=== PATIENT | female | born 1950 | race Asian ===

== ENCOUNTER 2016-10-30 16:19 | Inpatient (IN) | payer MEDICARE, MEDICAID ==
[~2016-10-30] VITALS: Ht 152.4 cm; Wt 48.6 kg
[2016-10-30 16:24] VITALS: BP 113/60; PULSE 102; RESP 16; O2SAT 99
[2016-10-30 16:52] LABS: BASOPHILS % (AUTO) 0.1 % (0-3); EOSINOPHILS % (AUTO) 0.1 % (0-5); Mean Corpuscular Hemoglobin 31.3 pg (27.0-35.0); Mean Corpuscular Volume 88.9 fL (81-100); NEUTROPHILS % (AUTO) 84.7 % (40-74); Platelet Count 217 bil/L (150-400)
[2016-10-30 17:12] LABS: Magnesium 2.1 mg/dL (1.6-2.6)
[2016-10-30] MEDS ORDERED: Ondansetron 2 mg/mL 2 mL Inj IVPUSH ONE (17:25)
[2016-10-30] MEDS ORDERED: 0.9% Sodium Chloride 1,000 ML IV ONE (17:25)
[2016-10-30 17:29] LABS: APPEARANCE,URINE HAZY (CLEAR,HAZY); COLOR,URINE YELLOW (YELLOW)
[2016-10-30 17:30] LABS: OCCULT BLOOD,URINE SMALL (NEGATIVE); UROBILINOGEN,URINE NORMAL (NORMAL)
--- NOTE | 2016-10-30 17:30 | ED.REPORT ---
HPI-Abd Pain F 40 and Over Date of Service Oct 30, 2016 ED Provider: Jodi Delgadillo MD Pt is a 66 year old Macedonian speaking female with a hx of DM presenting to the ED complaining of RUQ pain and nausea onset this morning. Denies vomiting, diarrhea , fever, chills, SOB or wheezing. Yesterday, she had mid epigastric pain onset after eating, but it has now migrated to the RUQ. Denies any hx of surgery. Nursing Notes Stated Complaint: ABDOMINAL PAIN Chief Complaint: Female Abdominal Pain Nursing Notes Reviewed: Yes Allergies: Coded Allergies: No Known Allergies (Unverified , 10/30/16) Scheduled ([Anti-Hypertensive]) 5 MG PO QAM Atorvastatin (Lipitor) 40 Mg Tablet Unknown Dose PO HS Glipizide ER (Glipizide ER) 2.5 Mg Tab.er.24 2.5 MG PO QAM Metformin (Metformin) 500 Mg Tablet 500 MG PO BIDWM General Time Seen by MD: 17:20 Chief Complaint Abdominal pain Hx Obtained From: Patient Arrived By: Walk-in Sudden in Onset?: Yes Onset Occurred: Yesterday Context of Onset: Eating Symptom Duration: Since onset Location: : Epigastric: RUQ Quality: Painful Severity: Current: Moderate Severity: Maximum: Severe Recent Healthcare: No recent doctor visit, No recent hospitalization Similar Sx Previous: No Past Medical History Past Medical History Diabetes mellitus Past Surgical History denies Smoking History Unknown if Ever Smoker Ambulatory Status Independent Review of Systems Constitutional: Denies: Chills, Fever Respiratory: Denies: Shortness of breath, Wheezing GI: Reports: Abdominal pain, Nausea, Denies: Diarrhea, Vomiting Complete sys rev & neg: except as marked. Physical Exam Vital Signs Vital Signs (First) Date Time Temp Pulse Resp B/P Pulse Ox O2 Delivery O2 Flow Rate FiO2 10/30/16 16:24 36.8 102 16 113/60 99 Room Air Initial VS: Reviewed Head / Eyes: Atraumatic, Normocephalic, PERRL ENT: Mucous membranes moist, Conjunctiva normal, No scleral icterus Extremities: Vascular intact, Neuro intact, No swelling, No tenderness Skin: Warm, Dry, No cyanosis Neurologic: Alert, Oriented, Nonfocal Psychiatric: Mood/affect normal, Behavior normal, Normal thought content General/Constitutional: Awake, Alert Appears uncomfortable Respiratory / Chest: Breath sounds NL, Breath sounds = bilat, No respiratory distress, No rales, No rhonchi, No wheezing, No stridor Cardiovascular: Heart rate NL, Regular rhythm, Heart sounds NL, Peripheral circulation NL Abdomen: Atraumatic Tenderness/Guarding/Rebound: Positive: Guarding involuntary, Tender RUQ... ( Moderate) Back: Atraumatic, Inspection NL Interpretation & Diagnostics US ABDOMEN: IMPRESSION: 1. Cholelithiasis with positive sonographic Lafleur sign suspicious for early acute cholecystitis. 2. Mild common bile duct dilatation. Please correlate with laboratory data to exclude biliary obstruction. Dictated by: Flavia Webb MD, PhD on 10/30/2016 at 18:51 Lab Results Interpretation Result Diagram: 10/30/16 1642 10/30/16 1642 Test 10/30/16 16:42 10/30/16 17:03 10/30/16 17:31 White Blood Count 16.4th/mm3 (3.8-10.1) Red Blood Count 4.16mil/mm3 (3.90-5.20) Hemoglobin 13.0g/dL (12.0-15.6) Hematocrit 37.0% (35.0-46.0) Mean Corpuscular Volume 88.9fL (81-100) Mean Corpuscular Hemoglobin 31.3pg (27.0-35.0) Mean Corpuscular Hemoglobin Concent 35.1% (32.0-37.0) Red Cell Distribution Width 11.4% (12.3-15.4) Platelet Count 217bil/L (150-400) Neutrophils (%) (Auto) 84.7% (40-74) Lymphocytes (%) (Auto) 8.9% (14-46) Monocytes (%) (Auto) 6.0% (4-12) Eosinophils (%) (Auto) 0.1% (0-5) Basophils (%) (Auto) 0.1% (0-3) Sodium Level 131mEq/L (134-144) Potassium Level 4.5mEq/L (3.5-5.2) Chloride Level 93mEq/L (97-108) Carbon Dioxide Level 23mmol/L (18-29) Blood Urea Nitrogen 13mg/dL (8-27) Creatinine 0.52mg/dL (0.57-1.00) Estimat Glomerular Filtration Rate 170mL/min (>59) Glucose Level 181mg/dL (60-99) Calcium Level 9.4mg/dL (8.5-10.1) Magnesium Level 2.1mg/dL (1.6-2.6) Total Bilirubin 0.8mg/dL (0.0-1.2) Aspartate Amino Transf (AST/SGOT) 18U/L (0-50) Alanine Aminotransferase (ALT/SGPT) 27U/L (0-32) Alkaline Phosphatase 75U/L (25-165) Total Protein 8.3g/dL (6.4-8.4) Albumin 4.5g/dL (3.4-5.0) Lipase 27U/L (13-60) Urine Color Yellow (YELLOW) Urine Appearance Hazy (CLEAR,HAZY) Urine pH 6.0 (5.0-8.0) Urine Specific Jermyn 1.020 (1.003-1.035) Urine Protein Tracemg/dL (NEG,TRACE) Urine Glucose (UA) Negativemg/dL (NEGATIVE) Urine Ketones Negativemg/dL (NEGATIVE) Urine Occult Blood Small (NEGATIVE) Urine Nitrite Negative (NEGATIVE) Urine Bilirubin Negative (NEGATIVE) Urine Urobilinogen Normalmg/dL (NORMAL) Urine Leukocyte Esterase Trace (NEGATIVE) Urine RBC 0-2/hpf (0-2) Urine WBC 0-5/hpf (0-5) Urine Epithelial Cells Few/hpf (NONE-MOD) Urine Crystals None seen (NONE SEEN) Urine Bacteria Few/hpf (NONE-FEW) Urine Hyaline Casts None/lpf (NONE) Urine Granular Casts None seen (NONE SEEN) Urine Waxy Casts None seen (NONE SEEN) Urine Red Blood Cell Casts None seen (NONE SEEN) Urine White Blood Cell Casts None seen (NONE SEEN) Urine Mucus Present (None Seen) Urine Trichomonas None seen (NONE SEEN) Urine Yeast None (NONE SEEN) Urinalysis Comment None Urine Culture Reflexed Indicated Hold Cotter Top Tube Received (Received) Re-Eval/Medical Decision Med Decision/Clinical Course 66-year-old female presents to the emergency department with right upper quadrant pain, develops fever while in the emergency department, elevated white blood cell count, right upper quadrant ultrasound with signs of cholecystitis. Patient did have a dilated common bile duct but no laboratory abnormalities concerning for choledocholithiasis. She was seen by Dr. Marroquin from general surgery in the emergency department and admitted to the hospital. She was given IV fluids as well as a dose of IV Zosyn. Re-Evaluation/Progress : Time of Eval: 19:15 Patient Status: Condition improved Re-Evaluation/Progress Note: Updated on ultrasound results and discussed plan for admission. Consultation : Referral / Consult Name: Perry Marroquin MD Consulted With: Surgeon Call Returned at: 19:12 Rubber Tubing Splicer: Will see patient, Agrees with plan, Accepts admit Counseled Regarding: Diagnosis, Lab results, Need for admission Discharge & Departure Primary Impression: Gallstones Disposition: ADMITTED TO HOSPITAL Discharge Condition All VS Reviewed: Yes Condition: Improved Referrals: OTHER,PHYSICIAN (PCP) Scribe Attestation Portions of this note were transcribed by Lucy Thomas. I, Dr. Delgadillo personally performed the history, physical exam and medical decision-making; I reviewed and confirmed the accuracy of the information in the transcribed note. Signed by: Jersey Gonzalez, 10/30/2016. Jodi Delgadillo MD Oct 30, 2016 17:30 LUCY THOMAS Oct 30, 2016 17:36
--- NOTE | 2016-10-30 18:57 | DRSVH ---
PROCEDURE: US ABDOMEN ([id number]) INDICATIONS: RUQ pain, cholecystitis TECHNIQUE: Real-time scanning was performed of the abdominal and retroperitoneal organs, with image documentatio n. COMPARISON: None. FINDINGS: Liver: Liver is normal in size and homogeneous in echotexture. Gallbladder: Large gallstone is noted. Gallbladder wall is not thickened. Positive sonographic Mur phy sign noted. Biliary ducts: Intrahepatic bile ducts are non-dilated. Extrahepatic bile duct caliber measures 9 m m. Normal is 6-7 mm or less in diameter, or 10 mm or less post-cholecystectomy. Pancreas: Visualized portions of the pancreas are sonographically normal. Spleen: Spleen is normal in size and homogeneous in echotexture. Kidneys: Kidneys are normal in size and echotexture. Right kidney measures 12.0 cm long; left kidne y measures 10.1 cm long. No hydronephrosis or nephrolithiasis. No solid masses. Aorta: Visualized aorta is normal in caliber at less than 3 cm. Iliacs: Proximal common iliac arteries are normal in caliber at less than 2.5 cm. IVC: Intrahepatic inferior vena cava is patent. Miscellaneous: No free abdominal fluid. IMPRESSION: 1. Cholelithiasis with positive sonographic Lafleur sign suspicious for early acute cholecystitis. 2. Mild common bile duct dilatation. Please correlate with laboratory data to exclude biliary obstr uction. Dictated by: Flavia Webb MD, PhD on 10/30/2016 at 18:51 Approved by: Flavia Webb MD, PhD on 10/30/2016 at 18:55
[2016-10-30] MEDS ORDERED: Piperacillin-Tazo 3.375 Gm Inj 3.375 GM in Dextrose 5% Minibag Plus 50 ML IV ONE (19:10)
[2016-10-30 19:28] VITALS: BP 108/58; PULSE 94; RESP 18; O2SAT 97
[2016-10-30] MEDS ORDERED: Acetaminophen IV 1,000 MG in IV Premix 1 EACH IV ONE (19:50)
[2016-10-30] MEDS ORDERED: Insulin Human REGular Inj 100 UNIT in 0.9% Sodium Chloride-Pha MIX 100 ML IV SCH (20:09)
[2016-10-30] MEDS ORDERED: D5 0.9% NaCl + KCl 20 mEq/L 1,000 ML IV SCH (20:10)
[2016-10-30] MEDS ORDERED: HYDROmorphone 0.5 mg/0.5 mL iSecure Syringe IV PRN (20:10)
[2016-10-30] MEDS ORDERED: diphenhydrAMINE 25 mg Capsule PO PRN (20:10)
[2016-10-30] MEDS ORDERED: Acetaminophen IV 1,000 MG in IV Premix 1 EACH IV PRN (20:10)
[2016-10-30] MEDS ORDERED: Ondansetron 2 mg/mL 2 mL Inj IVPUSH PRN (20:10)
[2016-10-30 20:30] VITALS: BP 89/54; PULSE 85; RESP 16; O2SAT 97
--- NOTE | 2016-10-30 20:34 | NUR ---
Admission Admission assessment and screening completed. Machine Precision Engraver service utilized during interview.
[2016-10-30] MEDS ORDERED: Dextrose 10% 250 ML IV PRN (20:40)
[2016-10-30] MEDS ORDERED: Glucose 40% Oral Gel 15 Gm Tube PO SCH (20:45)
[2016-10-30] MEDS ORDERED: GLIP2.5T2 PO (21:18)
[2016-10-30] MEDS ORDERED: ANTI-HYPERTENSIVE PO (21:18)
[2016-10-30] MEDS ORDERED: LIP40 PO (21:18)
[2016-10-30] MEDS ORDERED: METF500T4 PO (21:18)
[2016-10-30] MEDS ORDERED: Piperacillin-Tazo 3.375 Gm Inj 3.375 GM in Dextrose 5% Minibag Plus 50 ML IV SCH (23:30)
[2016-10-31] VITALS (12 sets, daily range): BP systolic 92–120; BP diastolic 51–62; PULSE 65–99; RESP 16–22; O2SAT 94–100
--- NOTE | 2016-10-31 00:19 | HP ---
[address] [address] HISTORY AND PHYSICAL PATIENT: AIDEN BROOKS : 1950 MR#: [id number] ADMIT: 10/30/2016 JOB ID: [id number] CHIEF COMPLAINT/IDENTIFICATION: A 66-year-old female, with acute cholecystitis. HISTORY OF PRESENT ILLNESS: The patient began with midepigastric pain after eating yesterday, this morning, noted that it had moved over to the right upper quadrant and had associated nausea. No emesis, no history of jaundice, acholic stool, or tea-colored urine. This is her 1st episode of this type of abdominal pain. She has been diagnosed with acute cholecystitis in the emergency department. PAST MEDICAL HISTORY: Diabetes, hypertension. MEDICATIONS: She is unable to tell me exactly what she is taking, but she says she takes two diabetes medications, neither of them being insulin. ALLERGIES: None. SOCIAL HISTORY: The patient is seen with her . Her primary language is Bengali, though they both speak some Malawian. My entire interview and exam has been using the [employer] audio quality officer for Bengali. Negative tobacco. Negative daily alcohol. Other important social history is that the patient's son is getting in [place] next weekend, and they were going to get on a plane on . REVIEW OF SYSTEMS: Negative per Dr. Delgadillo. PHYSICAL EXAMINATION: Slender woman, appearing somewhat fatigued, in no acute distress. Sclerae are clear. She appears anicteric. Neck is supple. Lungs are clear. Heart sounds are regular. Breasts are not examined. She has mild right upper quadrant tenderness. LABORATORIES: Shows white count of 16.4, hematocrit of 37, platelets of 217. Normal liver function tests. Her glucose is 181. Sodium is a little low at 131. Chloride is 93. Lipase is 27. IMAGING: She has had an ultrasound that is consistent with acute cholecystitis, with at least one large gallstone. IMPRESSION/PLAN: Fairly mild acute cholecystitis. This is her 1st episode. I have recommended a laparoscopic cholecystectomy, but I have also offered them the option of antibiotic treatment with a goal of either avoiding surgery at all or of bridging through the trip to [place] and the wedding. My recommendation is to move ahead with laparoscopic cholecystectomy tomorrow morning, and that has been my recommendation including description of the procedure and discussion of the risks of bleeding, infection, and injury to other structures including the common duct. The patient and her would like to proceed, and signed the consent. I will admit her to my service, try to get her glucose under control with an insulin drip tonight, hydrate her up a bit to get her electrolytes normal, recheck her LFTs, but plan for a laparoscopic cholecystectomy with cholangiogram tomorrow morning.
--- NOTE | 2016-10-31 01:36 | NUR ---
TO ROOM 1008; 66 yr old female from e.r. via [facility] at approx. 2030 with c/o abd pain which started yesterday (10/29). Stated very little pain upon transfer to room. Denied nausea. Insulin gtt started. NPO for surgery in the a.m. and son was with pt; left for the evening. Pt able to communicate with the nursing staff. Primary language is Maltese.
--- NOTE | 2016-10-31 05:40 | NUR ---
PAIN; slept well during the night. Up to [facility] [place] this a.m. c/o 08/23 abd pain - dilaudid 0.5mg iv given slowly due to pt being small and systolic bp 90's. Insulin gtt cont.
[2016-10-31 05:56] LABS: BASOPHILS % (AUTO) 0.1 % (0-3); EOSINOPHILS % (AUTO) 0.3 % (0-5); MONOCYTES % (AUTO) 5.3 % (4-12); Mean Corpuscular Volume 90.8 fL (81-100); NEUTROPHILS % (AUTO) 85.2 % (40-74); Platelet Count 168 bil/L (150-400)
--- NOTE | 2016-10-31 07:26 | PCM.HPANE ---
Patient Data Date of Service: Oct 31, 2016 Surgeon Admitting Provider:Perry Marroquin MD Attending Provider:Perry Marroquin MD Primary Care Physician:Other,Physician Other Provider:Sonia Jacobs Anesthesia Reason for Visit Cholecystitis Ht/WT & BMI Height (Feet): 5 Height (Inches): 0.00 Weight (Kilograms): 48.100 Body Mass Index 20.82 Allergies Coded Allergies: No Known Allergies (Unverified , 10/30/16) Past Anesthesia History Anesthesia History: Denies:: Abnormal Airway, Anesthesia Reactions, Fam Anesthesia Reaction Diabetes History Hx Diabetes?: Yes Type of Diabetes: Type II Glycemic Control: Oral Medication Current Bedside Blood Glucose: 153 MRSA MRSA: No Medications Hypertension Medication: Yes Home Meds Incl Beta Ray: No Reported Medications [Anti-Hypertensive] No Conflict Check5 Mg PO QAM 10/30/16 Metformin 500 Mg [id number] Mg PO BIDWM Ref 0 10/30/16 Glipizide ER 2.5 Mg Tab.er.242.5 Mg PO QAM 10/30/16 Atorvastatin (Lipitor)40 Mg TabletUnknown Dose PO HS Ref 0 10/30/16 History History of ENT Problems?: No HEENT History: Denies:: Abnormal Airway Denture Type: None Teeth Condition: Within Normal Limits Other HEENT Pertinent History: loose lower front tooth Hx of Heart Problems?: Yes Cardiovascular History: Positive for:: Hypertension Denies:: Cardiac Surgery Chest Pain Congestive Heart Failure Edema Heart Murmur Irregular Heartbeat Pacemaker Thrombophlebitis Hx of Respiratory Problem?: No Respiratory History: Denies:: Asthma Cough Dyspnea Tuberculosis Hx Neurologic Problems?: No Hx of GI Problems?: No Hx of Problems?: No Female Hx: Denies:: Endometriosis Pelvic Inflammatory Problems with Breasts? Hx Musculoskeletal Problems?: No Hx of Psycho/Social Problems?: No Hx Surgeries?: No Hx Any Other Health Problems?: Yes Other History: Positive for:: Hospitalization Denies:: Cancer History Blood Transfusions: Positive for:: Accept Blood Products? Denies:: Blood Transfusions Hx Diabetes: YesBedside Blood Glucose: 153 Hx Alcohol Use: NoHx Substance Use: No Smoking Status: Unknown if Ever Smoker Stop/Bang Treated for Sleep Apnea?: No Do You Have a CPAP Machine?: No S-Snoring: Do You Snore Loudly: No T-Tired: feel tired, fatigued: No O-Obsered: Observed not breath: No P-Blood Pressure: treated: No B- Body Mass Index > 35 kg/m2: No A- Age over 50: Yes N- Neck Large Circumference: No G- Gender Male: No FINESSE Total Score: 0 FINESSE Risk Assessment: Low Risk, <3 Yes Risk Assessment Category Category 1A: Patient has history of documented sleep apnea, and HAS NOT received any narcotic, sedative or anesthesia administration during this stay. Category 1B: Patient has history of documented sleep apnea, and HAS received any narcotic , sedative or anesthesia administration during this stay Category 2: Patient has SUSPECTED Obstructive Sleep Apnea, and HAS received any narcotic , sedative or anesthesia administration during this stay. Category 3: Patient has SUSPECTED Obstructive Sleep Apnea and HAS NOT received narcotic, sedative or anesthesia administration during this stay. Category 4: Outpatient in Procedural Areas with known sleep apnea or who screen positive for High Risk via the STOP/BANG questionnaire. Exam Exam Vital Signs Vital Signs Date Time Temp Pulse Resp B/P Pulse Ox O2 Delivery O2 Flow Rate FiO2 10/31/16 05:38 37.1 81 18 92/62 97 Room Air 10/31/16 00:13 37.1 84 20 94/52 98 Room Air General Appearance: Alert, Oriented X3, Cooperative, No Acute Distress HEENT/AIRWAY: MP 2, Neck Movement (FROM, tmd 3 fb), Mouth Opening (small) Lungs: Clear to Auscultation, Normal Air Movement Heart: Exam Unremarkable, Regular Rate/Rhythm, No Murmurs/Rubs/Gallops Meds/Labs/Diagnostics Admission Meds Current Medications Sodium Chloride (Normal Saline) 1,000 ml @ 0 mls/hr Q0M ONCE IV Last administered on 10/30/16 17:54; Start 10/30/16 at 17:25; Stop 10/30/16 at 17:29 ; Status DC Ondansetron HCl 4 mg 4 mg ONCE ONCE IVPUSH Last administered on 10/30/16 17: 54; Start 10/30/16 at 17:25; Stop 10/30/16 at 17:29; Status DC Piperacillin Sod/ Tazobactam Sod 3.375 gm/Dextrose/ Water 50 ml @ 100 mls/hr ONCE ONCE IV Last administered on 10/30/16 19:27; Start 10/30/16 at 19:10; Stop 10/30/16 at 19:39; Status DC Acetaminophen 1000 mg/Premix 100 ml @ 400 mls/hr ONCE ONCE IV Last administered on 10/30/16 20:04; Start 10/30/16 at 19:50; Stop 10/30/16 at 20:04 ; Status DC Insulin Human Regular 100 unit/ Sodium Chloride 101 ml @ 0 mls/hr Q0M IV Last administered on 10/30/16 21:29; Start 10/30/16 at 20:09 Piperacillin Sod/ Tazobactam Sod 3.375 gm/Dextrose/ Water 50 ml @ 12.5 mls/hr Q8H IV Last administered on 10/30/16 23:34; Start 10/30/16 at 23:30 Potassium Chloride/Dextrose/ Sod Cl (Dextrose 5% 0.9% NaCl + KCl 20 mEq/L) 1, 000 ml @ 75 mls/hr [id number] IV Last administered on 10/30/16 21:08; Start at 20:10 Bedside Blood Glucose: 153 Labs Test 10/30/16 16:42 10/30/16 17:03 10/30/16 17:31 10/31/16 05:17 Magnesium Level 2.1mg/dL (1.6-2.6) Lipase 27U/L (13-60) Urine Color Yellow (YELLOW) Urine Appearance Hazy (CLEAR,HAZY) Urine pH 6.0 (5.0-8.0) Urine Specific [place] 1.020 (1.003-1.035) Urine Protein Tracemg/dL (NEG,TRACE) Urine Glucose (UA) Negativemg/dL (NEGATIVE) Urine Ketones Negativemg/dL (NEGATIVE) Urine Occult Blood Small (NEGATIVE) Urine Nitrite Negative (NEGATIVE) Urine Bilirubin Negative (NEGATIVE) Urine Urobilinogen Normalmg/dL (NORMAL) Urine Leukocyte Esterase Trace (NEGATIVE) Urine RBC 0-2/hpf (0-2) Urine WBC 0-5/hpf (0-5) Urine Epithelial Cells Few/hpf (NONE-MOD) Urine Crystals None seen (NONE SEEN) Urine Bacteria Few/hpf (NONE-FEW) Urine Hyaline Casts None/lpf (NONE) Urine Granular Casts None seen (NONE SEEN) Urine Waxy Casts None seen (NONE SEEN) Urine Red Blood Cell Casts None seen (NONE SEEN) Urine White Blood Cell Casts None seen (NONE SEEN) Urine Mucus Present (None Seen) Urine Trichomonas None seen (NONE SEEN) Urine Yeast None (NONE SEEN) Urinalysis Comment None Urine Culture Reflexed Indicated Hold Cotter Top Tube Received (Received) White Blood Count 14.6th/mm3 (3.8-10.1) Red Blood Count 3.58mil/mm3 (3.90-5.20) Hemoglobin 11.1g/dL (12.0-15.6) Hematocrit 32.5% (35.0-46.0) Mean Corpuscular Volume 90.8fL (81-100) Mean Corpuscular Hemoglobin 31.0pg (27.0-35.0) Mean Corpuscular Hemoglobin Concent 34.2% (32.0-37.0) Red Cell Distribution Width 11.5% (12.3-15.4) Platelet Count 168bil/L (150-400) Neutrophils (%) (Auto) 85.2% (40-74) Lymphocytes (%) (Auto) 8.8% (14-46) Monocytes (%) (Auto) 5.3% (4-12) Eosinophils (%) (Auto) 0.3% (0-5) Basophils (%) (Auto) 0.1% (0-3) Sodium Level 135mEq/L (134-144) Potassium Level 4.1mEq/L (3.5-5.2) Chloride Level 102mEq/L (97-108) Carbon Dioxide Level 21mmol/L (18-29) Blood Urea Nitrogen 10mg/dL (8-27) Creatinine 0.42mg/dL (0.57-1.00) Estimat Glomerular Filtration Rate 217mL/min (>59) Glucose Level 149mg/dL (60-99) Calcium Level 8.4mg/dL (8.5-10.1) Total Bilirubin 1.0mg/dL (0.0-1.2) Aspartate Amino Transf (AST/SGOT) 16U/L (0-50) Alanine Aminotransferase (ALT/SGPT) 20U/L (0-32) Alkaline Phosphatase 63U/L (25-165) Total Protein 6.5g/dL (6.4-8.4) Albumin 3.8g/dL (3.4-5.0) Plan Impression Patient chart reviewed, patient interviewed and anesthestic plan with risks, benefits, and alternatives discussed, and informed consent obtained. NPO per Anesth. Guidelines: Yes ASA Physical Status: ASA2 Mod Systemic Disease Anesthetic Plan: GA Bene/Risks/Altern/Consents: Yes HP Complete Prior to Induction: Yes Pio Fermin MD Oct 31, 2016 07:26
--- NOTE | 2016-10-31 08:03 | NUR ---
Off Unit Pt off unit to OR. Report given to BARREL SCRAPER.
[2016-10-31] MEDS ORDERED: Lactated Ringer's 1,000 ML IV ONE (08:22)
[2016-10-31] MEDS ORDERED: Lactated Ringer's 500 ML IV PRN (08:58)
[2016-10-31] MEDS ORDERED: Lactated Ringer's 1,000 ML IV SCH (08:58)
[2016-10-31] MEDS ORDERED: Bupivacaine-MPF 0.5% 30 mL Inj INFILTRATE ONE (08:59)
[2016-10-31] MEDS ORDERED: Phenylephrine 10,000 mCg/mL Inj IVPUSH PRN (09:00)
[2016-10-31] MEDS ORDERED: fentaNYL-PF 50 mCg/mL 2 mL Inj IVPUSH PRN (09:00)
[2016-10-31] MEDS ORDERED: hydrALAZINE 20 mg/mL Inj IVPUSH PRN (09:00)
[2016-10-31] MEDS ORDERED: HYDROmorphone 1 mg/mL Inj IVPUSH PRN (09:00)
[2016-10-31] MEDS ORDERED: Ondansetron 2 mg/mL 2 mL Inj IVPUSH PRN (09:00)
[2016-10-31] MEDS ORDERED: Labetalol 5 mg/mL 20 mL Inj IV PRN (09:00)
[2016-10-31] MEDS ORDERED: Atropine 0.4 mg/mL Inj IVPUSH PRN (09:00)
[2016-10-31] MEDS ORDERED: EPHEDrine Sulfate 50 mg/mL Inj IVPUSH PRN (09:00)
--- NOTE | 2016-10-31 09:32 | DRSVH ---
PROCEDURE: X-RAY OPERATIVE CHOLANGIOGRAM ([id number]) INDICATIONS: CHOLECYSTITIS COMPARISON: None. FINDINGS: Biliary ducts: The surgeon injected contrast into the biliary ducts after cannulation of the cystic duct stump. Visualized intra- and extrahepatic bile ducts are normal in caliber, without strictures. No intraluminal filling defects to suggest retained ductal stones or sludge. No evidence for iatro genic ductal injury. Duodenum: Contrast flows promptly through the sphincter of Oddi into the duodenum, which appears nor mal in caliber. IMPRESSION: No choledocholithiasis. Dictated by: Lyudmila Linda M.D. on 10/31/2016 at 9:30 Approved by: Lyudmila Linda M.D. on 10/31/2016 at 9:30
[2016-10-31] MEDS: Piperacillin-Tazo 3.375 Gm Inj 3.375 GM in Dextrose 5% Minibag Plus 50 ML IV SCH ×2 (10:09→17:54)
--- NOTE | 2016-10-31 10:52 | OP ---
[address] [address] OPERATIVE REPORT PATIENT: AIDEN BROOKS : 1950 MR#: [id number] ADMIT: 10/30/2016 JOB ID: [id number] DATE OF SURGERY: 10/31/2016 PREOPERATIVE DIAGNOSIS(ES): Acute cholecystitis. POSTOPERATIVE DIAGNOSIS(ES): Acute cholecystitis. PROCEDURE: Laparoscopic cholecystectomy and intraoperative cholangiogram. SURGEON: Perry Marroquin MD ASSISTANT PROFESSOR OF GEOGRAPHY: Petey Centeno PA-C INDICATIONS: A 66-year-old woman with signs and symptoms consistent with cholecystitis. FINDINGS: 1. A surgical services coordinator was medically necessary for retraction and camera operation. 2. The patient had acute cholecystitis with one very large gallstone that encompassed basically 75% of the volume of the gallbladder. 3. Gallbladder was tense and when we aspirate bile to allow retraction the aspirated bile was quite mucoid. 4. Normal intraoperative cholangiogram. PROCEDURE: The patient was brought to the operating room where general anesthetic was administered. SCOAP protocol was followed. She received perioperative Zosyn, and she had already been on therapeutic Zosyn. Surgical time-out was performed. We obtained access with a Veress needle. We placed four ports. The gallbladder was inflamed. We decompressed it. We retracted cephalad. We dissected out the cystic duct gallbladder junction. I placed a clip on the gallbladder side, further expanded the window of the triangle of Calot. We obtained a cholangiogram which demonstrated the common bile duct was mildly dilated, though normal intrahepatic anatomy and good flow into the duodenum. We placed two clips across the patient's side of the cystic duct and divided the cystic duct right as it entered the gallbladder. We then stayed on the gallbladder and dissected the gallbladder out of the liver bed. There was some spillage of bile, no spillage of stones. We placed the gallbladder in a bag. It was obvious at this point, that the patient had one very large stone and I therefore expanded the left upper quadrant incision subxiphoid incision to allow us to remove the bag without spillage of contents or contamination of the wound. We then closed this layer with running 0-Vicryl in two layers as this was the rectus sheath. We suctioned out approximately 20 cc of blood, obtained hemostasis in the liver bed, checked our clips. We irrigated out several L of fluid until absolute clear. There was no sign of a bile leak. We removed our ports and let our CO2 out. We closed the skin incisions with absorbable Monocryl. The patient tolerated the procedure well.
--- NOTE | 2016-10-31 10:55 | NUR ---
Post Op Pt arrived to [facility] room 1008 at 1045. A&Ox3. VORA. 3 lap sites C/D/I. Upper medial has minimal seroussanguineous drainage. Pt rates pain 2/10. Denies N/V. IV zosyn running at 12.5/hour. Insulin drip d/c'd per PACU. Blood sugar at 1055 153. Pt oriented to room and call light. PACU to let family know pt is in her room. Care continues.
--- NOTE | 2016-10-31 11:54 | PCM.ANEP1 ---
Post Anesthesia PACU Phase 1 Assessment Date of Service: Oct 31, 2016 Vital Signs Vital Signs Date Time Temp Pulse Resp B/P Pulse Ox O2 Delivery O2 Flow Rate FiO2 10/31/16 10:23 37.2 90 18 103/54 96 Room Air 10/31/16 10:11 85 18 106/53 99 Nasal Cannula 2 10/31/16 09:50 80 18 110/56 99 Nasal Cannula 2 10/31/16 09:45 74 16 120/60 99 Nasal Cannula 2 10/31/16 09:40 76 22 111/58 99 Nasal Cannula 2 10/31/16 09:35 37.3 78 20 111/60 100 Nasal Cannula 2 10/31/16 08:46 36.9 99 18 99/61 94 Room Air 10/31/16 05:38 37.1 81 18 92/62 97 Room Air Anesthetic Administered: GA Level of Alertness: Awake, talking VORA's with Equal Strength: Yes Pain: Yes Pain Scale Score: 5 Nausea or Vomiting: No CV Function & Hydration Stable: Yes Airway Device: none Oxygen Delivery: Room Air Lungs: Clear to Auscultation, Normal Air Movement PACU Phase 2 Assessment Complications: No Follow up Care: No Patient Instructions Provided: N/A Pio Fermin MD Oct 31, 2016 11:54
--- NOTE | 2016-10-31 12:18 | NUR ---
Social Work: Initial Assessment/Multi-Disciplinary Rounds D: EMR reviewed. Please see Initial Assessment linked to this note for more information. Pt is a 66 y/o female admitted [place] - no readmit risk score assigned - for cholecystitis per H&P. [facility] PCP is Hunter Padilla MD. ESE met with pt, spouse, and son at bedside to conduct initial assessment. Pt was alert and oriented x3. SW explained role and wrote phone number on white board. SW provided [facility] Discharge Planning Checklist and encouraged pt to contact SW for any discharge planning questions. Pt discussed in multidisciplinary rounds. Pt is not medically stable for discharge at this time, anticipate 1-2 more days. No SW needs identified, no MD orders received. Pt lives at home with her spouse in [place]. Pt is independent with all ADLs. Pt does not own any DME. Pt has no hx of HH or SNF. Pt stated she also has Medicaid and that her EMR states she lives in [place] but lives in [place]. ESE sent message to [place] to determine if pt has Medicaid and update her insurance record if found. ESE also updated registration on pt's correct address. Pt expressed concerns about making it out of hospital in time for a wedding this in [place]. Pt's spouse stated that surgeon told pt she could fly to wedding so long as she "takes it easy" and has family with her for help. Per meeting with family, family is very supportive and confirmed she has ample support at home. SW provided DPOA/advanced directive ppw and encouraged pt to return a completed copy to the hospital. A: Pt who is independent at baseline and has the capacity for self-care. P: Pt anticipated to discharge home in 1-2 days via POV. No SW needs identified at this time, no MD orders received. SW will continue to follow for needs until time of discharge. ESPERANZA D[place] Addendum: 10/31/16 at 1229 by PARESH REES SS Amended: Links added.
[2016-10-31] MEDS ORDERED: LISI2.5T PO (18:13)
[2016-10-31] MEDS ORDERED: GLIP5TAB26 PO (18:13)
[2016-10-31] MEDS ORDERED: ATOR20TA PO (18:23)
[2016-11-01 01:20] VITALS: BP 106/66; PULSE 69; RESP 18; O2SAT 98
[2016-11-01] MEDS: Piperacillin-Tazo 3.375 Gm Inj 3.375 GM in Dextrose 5% Minibag Plus 50 ML IV SCH (02:24)
--- NOTE | 2016-11-01 04:01 | NUR ---
Activity Pt is alert, oriented, and able to make needs known. No decreased in LOC noted. Denies N/V/D, pain, resp distress or SOB. Lap site x4 with dressing intact, noted with serosanguineous drainage on upper umbilicus lap site only. Abdomen soft and tender and BT hypoactive. Up and walked to bathroom x3 for toileting this shift so far. Will continue to monitor.
[2016-11-01 05:20] LABS: BASOPHILS % (AUTO) 0 % (0-3); EOSINOPHILS % (AUTO) 0.2 % (0-5); MONOCYTES % (AUTO) 5.1 % (4-12); Mean Corpuscular Hemoglobin 31.2 pg (27.0-35.0); NEUTROPHILS % (AUTO) 81.3 % (40-74); Platelet Count 165 bil/L (150-400)
[2016-11-01] MEDS ORDERED: Polyethylene Glycol (PEG) 17 Gm Powder PO PRN (06:25)
[2016-11-01 06:58] VITALS: BP 104/67; PULSE 89; RESP 18; O2SAT 96
[2016-11-01] MEDS ORDERED: Ibuprofen PO (08:27)
[2016-11-01] MEDS ORDERED: Acetaminophen PO (08:27)
[2016-11-01] MEDS ORDERED: POLY17PO6 PO (08:27)
[2016-11-01] MEDS ORDERED: OXYC-530 PO (08:27)
--- NOTE | 2016-11-01 08:40 | PCM.DIMED ---
Discharge Instructions Date of Service Nov 01, 2016 Dates of Hospitalization Oct 30, 2016 at 20:13 Discharge Diagnosis Discharge Diagnosis Acute cholecystitis Medication Instructions Additional med instructions We would like you to continue taking your home medications as previously prescribed, you may also take the following medications: Ibuprofen 200 mg up to 4 times a day as needed for pain Tylenol 650 mg up to 4 times a day as needed for pain Oxycodone 5 mg up to every 4 hours please only take if needed for severe pain not controlled by ibuprofen/Tylenol. Test Results Test Results An ultrasound completed here showed inflammation of the gallbladder and stones. Diet Discharge Diet: No restrictions Activity Discharge Activity: No restrictions Call your provider Call your provider for: Fever or Chills, Shortness of breath, Bleeding, Chest pain, Vomitting, Excessive diarrhea Patient Instructions Patient Instructions For 1 week do not immerse yourself in water you may shower after 24 hours but do not scrub incision sites. Please take medications as previously described above. Return to the emergency department if your incision sites become extremely painful, red, or if there is pus coming out of them. Follow-up plan Follow-up with Hossein Brink in 2-4 weeks. Follow-up Provider: Hossein Brink PA-C Follow-up with PCP in: 2 weeks Ar Robledo DO Nov 01, 2016 08:40
[2016-11-01 09:44] VITALS: BP 107/67; PULSE 73; RESP 18; O2SAT 97
--- NOTE | 2016-11-01 11:37 | PCM.DC.SUR ---
Discharge Summary Date of Service: Nov 01, 2016 Date of Hospital Admission: Oct 30, 2016 at 20:13 Date of Operation(s): October 31, 2016 at 09:38 Date of Discharge: 11/01/2016 Diagnosis at Time of Discharge Acute cholecystitis Problems: (1) Gallstones Status: Acute ICD Code: K80.20 (2) Acute cholecystitis Status: Acute ICD Code: K81.0 (3) Diabetes Qualifiers: Diabetes mellitus type: type 2 Status: Acute ICD Code: E11.9 (4) Hypertension Qualifiers: Hypertension type: essential hypertension Qualified Code: I10 - Essential (primary) hypertension Status: Acute ICD Code: I10 Operation Laparoscopic cholecystectomy with grams Brief History and Physical: 66-year-old female past medical history diabetes, hypertension presented with midepigastric pain after eating on 10/30, noted that it had moved over to the right upper quadrant and had associated nausea. No emesis, no history of jaundice, acholic stool, or tea-colored urine. This is her 1st episode of this type of abdominal pain. Diagnosed with acute cholecystitis in the emergency department. Slender woman, appearing somewhat fatigued, in no acute distress. Sclerae clear. Anicteric. Neck is supple. Lungs are clear. Heart sounds regular. Mild right upper quadrant tenderness. Initial labs showing white count of 16.4, hematocrit of 37, platelets of 217. Normal liver function tests. Her glucose is 181. Sodium is a little low at 131. Chloride is 93. Lipase is 27. Ultrasound is consistent with acute cholecystitis, with at least one large gallstone. Hospital Course: Patient presented with right upper quadrant pain diagnosed as acute cholecystitis in the ED, this was confirmed by ultrasound imaging, patient scheduled for cholecystectomy on 10/31. Cholecystectomy was completed without incident, for further details please refer to the surgical note completed by Dr. Marroquin on 10/31. Patient tolerated the procedure well and has had no postprocedural complications at this time. Pain is well-controlled, lab findings are improving: white count is trending down, LFTs within normal limits , electrolytes stabilized, patient is tolerating oral intake and able to ambulate appropriately. Disposition: Home Follow-up Plan: Patient will follow-up with Hossein Brink in 2-4 weeks. ([Ibuprofen]) 200 MG TABLET 200 MG PO QID PRN PRN For Pain ([Acetaminophen]) 325 MG TABLET 650 MG PO Q6H PRN PRN For Mild Pain or Fever Atorvastatin (Lipitor) 20 Mg Tablet 20 MG PO HS (Reported) Glipizide ER (Glipizide ER) 5 Mg Tab.er.24 5 MG PO MORNING (Reported) Lisinopril (Lisinopril) 2.5 Mg Tablet 2.5 MG PO HS (Reported) Metformin (Metformin) 500 Mg Tablet 500 MG PO BIDWM (Reported) Polyethylene Glycol 3350 (Miralax) 17 Gm Powd.pack 17 GM PO DAILY PRN PRN For Constipation oxyCODONE (oxyCODONE) 5 Mg Tablet 5 MG PO Q4H PRN PRN For Moderate Pain Discharge Medications: Ibuprofen 200 mg up to 4 times a day as needed for pain Tylenol 650 mg up to 4 times a day as needed for pain Oxycodone 5 mg up to every 4 hours please only take if needed for severe pain not controlled by ibuprofen/Tylenol. Ar Robledo DO Nov 01, 2016 11:37
[2016-11-01] MEDS ORDERED: Rocuronium 10 mg/mL 5 mL Inj ONE (15:05)
[2016-11-01] MEDS ORDERED: MetoCLOpramide 5 mg/mL 2 mL Inj ONE (15:05)
[2016-11-01] MEDS ORDERED: fentaNYL-PF 50 mCg/mL 2 mL Inj ONE (15:05)
[2016-11-01] MEDS ORDERED: Neostigmine 1 mg/mL 10 mL Inj ONE (15:05)
[2016-11-01] MEDS ORDERED: Ondansetron 2 mg/mL 2 mL Inj ONE (15:05)
[2016-11-01] MEDS ORDERED: Glycopyrrolate 0.2 MG/ML 1mL Inj ONE (15:05)
[2016-11-01] MEDS ORDERED: Dexamethasone 4 mg/mL Inj ONE (15:05)
[2016-11-01] MEDS ORDERED: Propofol 10,000 mCg/mL 20 mL Inj ONE (15:05)
--- NOTE | 2016-11-01 16:37 | NUR ---
Discharge Patient discharged home with her family. Patients son given discharge instructions who then translated to his mom as they are Malay decent and patient speaks and understands very little Spanish. Son agreed that he understood instructions and would schedule follow up appointment for his mother as directed. Prescriptions reviewed and discussed usage. Dressing to upper medial incision site changed had moderate amount bloody drainage.
--- NOTE | 2016-11-04 17:13 | PATH ---
SURGICAL PATHOLOGY Attending Physician:Perry Marroquin MD CASE STATUS: Signed Out PATIENT NAME: AIDEN BROOKS PID: [id number] : 1950 DATE COLLECTED:10/31/2016 00:00 SPECIMEN: Gallbladder CLINICAL HISTORY: CHOLECYSTITIS 1). GALLBLADDER FINAL DIAGNOSIS: 1.GALLBLADDER, CHOLECYSTECTOMY: - ACUTE CHOLECYSTITIS WITH CHOLELITHIASIS. ICD10 K81.0 GROSS DESCRIPTION: The specimen is received in one formalin filled container labeled with the patient's name, sublabeled "gallbladder" and consists of an opened 10.0 x 4.0 x 3.5 CM gallbladder. The serosa is smooth. The cystic duct is possibly identified. The wall is 0.2-0.6 CM thickness. The mucosa is a dark olea-brown in color. The lumen contains a light yellow gonzalez friable material and 3 light yellow-green calculi which range in size from 2.0-2.1 CM in greatest dimension. 5 warehouse representative sections are submitted in one cassette. 11/01/2016DC MICRO DESCRIPTION: See diagnosis. ICD-9 CODES: CPT CODES: 1: 40284 Electronically Signed Out Tony Stapleton MD [facility] [address], [place] [address] Technical component performed at [facility], [facility] [address], [place], [address]
== END 2016-11-01 15:06 | disposition home or self-care (01) | DRG 419 ==
LOC: SED 16:19 → OSC 20:13
PROVIDERS: ADMIT Surgery; ATTEND Surgery
PROC: 0FT44ZZ Resection of Gallbladder, Percutaneous Endoscopic Approach (ICD-10-PCS; principal; 2016-10-31 07:45)
DX: K80.00 Calculus of gallbladder with acute cholecystitis without obstruction (principal); E11.9 Type 2 diabetes mellitus without complications; I10 Essential (primary) hypertension; Z79.84 Long term (current) use of oral hypoglycemic drugs